=== PATIENT | male | born 1975 | race African-American/Black ===

== ENCOUNTER 2024-07-27 09:43 | Emergency (ER) | payer OTHER ==
[~2024-07-27] VITALS: Ht 175.3 cm; Wt 100.0 kg
[2024-07-27 10:17] VITALS: BP 118/84; PULSE 68; RESP 16; TEMP 98.2; O2SAT 98
[2024-07-27] MEDS: HYDROcodone-ACET 5/325MG TAB PO ONE (10:59)
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
[2024-07-27] MEDS ORDERED: CYCL-839 PO (13:10)
[2024-07-27] MEDS ORDERED: IBU600T PO (13:10)
== END 2024-07-27 13:13 | disposition home or self-care (01) ==
LOC: ER 09:43 → EDBD 09:43 → ER 13:13
DX: S39.012A Strain of muscle, fascia and tendon of lower back, initial encounter (principal); S29.012A Strain of muscle and tendon of back wall of thorax, initial encounter; V49.49XA Driver injured in collision with other motor vehicles in traffic accident, initial encounter; Y93.89 Activity, other specified; Y92.411 Interstate highway as the place of occurrence of the external cause; Y99.8 Other external cause status
CPT/HCPCS: 72040; 72070; 72100